=== PATIENT | male | born 1975 | race Caucasian/White ===

== ENCOUNTER 2025-09-19 11:13 | Inpatient (IN) | payer MEDICAID ==
[2025-09-19] VITALS (39 sets, daily range): BP systolic 64–154; BP diastolic 48–101; PULSE 59–116; RESP 10–24; TEMP 36.9–37.1964; O2SAT 95–100
[~2025-09-19] VITALS: Ht 167.6 cm; Wt 86.2 kg
[2025-09-19] MEDS ORDERED: MIDAZOLAM HCL 2 MG/2 ML VIAL ONE ×2 (11:18→11:36)
[2025-09-19] MEDS ORDERED: LIDOCAINE HCL 1% 20ML VIAL ONE (11:18)
[2025-09-19] MEDS ORDERED: FENTANYL CITRATE/PF 50MCG/ML 2ML VIAL ONE ×2 (11:18→11:38)
[2025-09-19] MEDS ORDERED: VERAPAMIL HCL 2.5 MG/1 ML 2ML VIAL IV ONE (11:18)
[2025-09-19] MEDS ORDERED: IODIXANOL 320 MG/ML 150ML BOTTLE IV ONE ×2 (11:18→12:13)
[2025-09-19] MEDS ORDERED: EPINEPHRINE 0.1MG/ML (1:10,000) 10ML SYR ONE (11:18)
[2025-09-19] MEDS ORDERED: ATROPINE SULFATE 1MG/10ML SYR ONE (11:19)
[2025-09-19] MEDS ORDERED: HEPARIN 1000 UNITS/ML 10ML ONE (11:19)
[2025-09-19] MEDS ORDERED: EPTIFIBATIDE 2 MG/ML 10ML VIAL IV ONE (11:31)
[2025-09-19] MEDS: HEPARIN 5000 UNITS/ML VIAL IV ONE (11:35)
[2025-09-19 11:38] LABS: BASOPHILS % 0.9 % (0.0-2.0); EOSINOPHILS % 0.4 % (0.0-5.0); HEMATOCRIT. 47.3 % (42.0-52.0); HEMOGLOBIN. 16.0 g/dL (14.0-18.0); LYMPHOCYTES % 32.3 % (20.0-50.0); MEAN PLATELET VOLUME 7.9 fl (7.4-10.4); MONOCYTES % 11.3 % (2.0-8.0); NEUTROPHILS % 55.1 % (40.0-76.0); PLATELET 319 x1000/uL (130-400); RED BLOOD CELL COUNT 5.48 mill/uL (4.7-6.1); RED CELL DISTRIBUTION WIDTH 13.8 % (11.6-14.6)
[2025-09-19] MEDS ORDERED: TICAGRELOR 90 MG TABLET PO ONE (11:49)
[2025-09-19 11:50] LABS: CREATININE 1.0 mg/dL (0.6-1.3)
[2025-09-19 11:51] LABS: PROTEIN TOTAL 8.1 g/dL (6.0-8.3); UREA NITROGEN BLOOD 10 mg/dL (9-23)
[2025-09-19] MEDS ORDERED: EPTIFIBATIDE 100 ML IV ONE (11:51)
[2025-09-19 11:52] LABS: ASPARTATE AMINOTRANSFERASE 31 IU/L (<34)
[2025-09-19 11:53] LABS: BILIRUBIN DIRECT 0.1 mg/dL (<=3.0); BILIRUBIN TOTAL 0.6 mg/dL (0.1-1.0)
[2025-09-19 11:54] LABS: TROPONIN I HIGH SENSITIVITY 295 ng/L (3.0-53)
[2025-09-19] MEDS ORDERED: ONDANSETRON HCL 4MG/2ML INJ ONE (12:16)
[2025-09-19 12:22] LABS: INR 1.0
[2025-09-19] MEDS ORDERED: IODIXANOL 320MG/ML 100 ML BOTTLE IV ONE (12:26)
[2025-09-19] MEDS ORDERED: DOCUSATE SODIUM 100MG CAPSULE PO PRN (14:45)
[2025-09-19] MEDS ORDERED: HYDRALAZINE 20MG/ML VIAL IV PRN (14:45)
[2025-09-19] MEDS ORDERED: GUAIFENESIN 200MG/10ML SUGAR FREE UDC PO PRN (14:45)
[2025-09-19] MEDS ORDERED: CLONIDINE 0.1MG TABLET PO PRN (14:45)
[2025-09-19] MEDS ORDERED: ONDANSETRON HCL 4MG/2ML INJ IV PRN (14:45)
[2025-09-19] MEDS ORDERED: LORAZEPAM 0.5MG TABLET PO PRN (14:45)
[2025-09-19] MEDS ORDERED: IPRATROPIUM/ALBUTEROL 0.5-3(2.5)MG/3ML NEB HHN PRN (14:45)
[2025-09-19] MEDS ORDERED: ACETAMINOPHEN 325MG TABLET PO PRN ×2 (14:45)
[2025-09-19] MEDS: LISINOPRIL 20MG TABLET PO SCH (16:07)
[2025-09-19] MEDS: NITROGLYCERIN 0.4MG TABLET SL SL PRN (16:07)
[2025-09-19] MEDS ORDERED: NALOXONE HCL 0.4MG/ML VIAL IV PRN (16:15)
[2025-09-19] MEDS: ATROPINE SULFATE 1MG/10ML SYR IV NR ×2 (16:35→16:46)
[2025-09-19] MEDS: ONDANSETRON HCL 4MG/2ML INJ IV NR (16:50)
[2025-09-19] MEDS: SODIUM CHLORIDE 0.9% 250 ML IV ONE ×2 (16:50→18:18)
[2025-09-19] MEDS: MORPHINE SULFATE 2 MG/ML INJ (NOT FOR IM USE) IV NR (17:25)
[2025-09-19] MEDS: BLOOD SUGAR DIAGNOSTIC STRIP TEST SCH (17:25)
[2025-09-19] MEDS: INSULIN LISPRO 100 UNITS/ML SUBCUT SCH (18:18)
[2025-09-19] MEDS: FAMOTIDINE 20MG/2ML VIAL IV SCH (19:30)
[2025-09-19] MEDS: ATORVASTATIN CALCIUM 40MG TABLET PO SCH (22:05)
[2025-09-19] MEDS: MORPHINE SULFATE 2 MG/ML INJ (NOT FOR IM USE) IV SCH (22:07)
[2025-09-19] MEDS: MORPHINE SULFATE 2 MG/ML INJ (NOT FOR IM USE) IV PRN (22:08)
[2025-09-19 22:42] LABS: TRIGLYCERIDE 196.0 mg/dL (0-150)
[2025-09-19 22:43] LABS: LDL CHOLESTEROL 189.0 mg/dL (5-100)
[2025-09-19 22:44] LABS: T4 FREE 1.32 ng/dL (0.89-1.76)
[2025-09-19] MEDS: NITROGLYCERIN 50MG PREMIX 250 ML IV PRN (23:55)
[2025-09-20] VITALS (86 sets, daily range): BP systolic 73–174; BP diastolic 56–92; PULSE 65–115; RESP 8–32; TEMP 36.8–37.5; O2SAT 92–98
[2025-09-20] MEDS ORDERED: EPTIFIBATIDE 2 MG/ML 10ML VIAL IV ONE (00:45)
[2025-09-20] MEDS: EPTIFIBATIDE 100 ML IV SCH (02:32)
[2025-09-20 08:30] LABS: BASOPHILS % 0.1 % (0.0-2.0); EOSINOPHILS % 0.0 % (0.0-5.0); HEMATOCRIT. 45.3 % (42.0-52.0); HEMOGLOBIN. 15.3 g/dL (14.0-18.0); LYMPHOCYTES % 13.6 % (20.0-50.0); MEAN PLATELET VOLUME 8.3 fl (7.4-10.4); MONOCYTES % 12.8 % (2.0-8.0); NEUTROPHILS % 73.5 % (40.0-76.0); PLATELET 279 x1000/uL (130-400); RED BLOOD CELL COUNT 5.28 mill/uL (4.7-6.1); RED CELL DISTRIBUTION WIDTH 14.1 % (11.6-14.6)
[2025-09-20 09:05] LABS: CREATININE 0.8 mg/dL (0.6-1.3)
[2025-09-20 09:06] LABS: UREA NITROGEN BLOOD 12 mg/dL (9-23)
[2025-09-20 09:07] LABS: PHOSPHORUS 3.6 mg/dL (2.5-4.9)
[2025-09-20] MEDS: CARVEDILOL 3.125 MG TABLET PO SCH (21:11)
[2025-09-20] MEDS: INSULIN GLARGINE 100 UNITS/ML SUBCUT SCH (21:13)
[2025-09-20] MEDS: CEFTRIAXONE 1GM/50ML 50 ML IV SCH (21:15)
[2025-09-20 22:06] LABS: CLARITY URINE CLEAR (CLEAR); GLUCOSE URINE 1+ (NEGATIVE); KETONES URINE 1+ (NEGATIVE); LEUKOCYTE ESTERASE URINE NEGATIVE (NEGATIVE); NITRITE URINE NEGATIVE (NEGATIVE); OCCULT BLOOD URINE NEGATIVE (NEGATIVE); PH URINE 5.5 (4.5-8.0); PROTEIN URINE NEGATIVE (NEGATIVE); SPECIFIC GRAVITY URINE 1.012 (1.005-1.030); UROBILINOGEN URINE 0.2 E.U./dL (0.2-1.0)
[2025-09-20 22:24] LABS: *AMPHETAMINES SCREEN URINE NEGATIVE (NEGATIVE); *BARBITURATES SCREEN URINE NEGATIVE (NEGATIVE); *BENZODIAZEPINES SCREEN URINE PRESUMPTIVE POSITIVE (NEGATIVE)
[2025-09-20 22:25] LABS: *COCAINE SCREEN URINE NEGATIVE (NEGATIVE); CANNABINOID URINE SCREEN NEGATIVE (NEGATIVE); ECSTASY MDMA SCREEN URINE NEGATIVE (NEGATIVE); METHADONE URINE SCREEN NEGATIVE (NEGATIVE); OPIATES URINE SCREEN PRESUMPTIVE POSITIVE (NEGATIVE); PHENCYCLIDINE URINE SCREEN NEGATIVE (NEGATIVE)
[2025-09-20 23:15] LABS: COLOR URINE STRAW (YELLOW)
[2025-09-20 23:16] LABS: BACTERIA URINE NONE SEEN; RBC URINE NONE SEEN /hpf (0-2); SQUAMOUS EPITHELIAL CELL URINE RARE /lpf (RARE/1+); WBC URINE 0-2 /hpf (0-2)
[2025-09-21] VITALS: BP 96/74; PULSE 96; RESP 19; TEMP 37.3; O2SAT 96
[2025-09-21 04:12] VITALS: BP 115/95; PULSE 100; RESP 28; TEMP 37.2
[2025-09-21 07:41] LABS: BASOPHILS % 0.3 % (0.0-2.0); EOSINOPHILS % 0.3 % (0.0-5.0); HEMATOCRIT. 43.8 % (42.0-52.0); HEMOGLOBIN. 14.6 g/dL (14.0-18.0); LYMPHOCYTES % 21.2 % (20.0-50.0); MEAN PLATELET VOLUME 8.3 fl (7.4-10.4); MONOCYTES % 14.7 % (2.0-8.0); NEUTROPHILS % 63.5 % (40.0-76.0); PLATELET 266 x1000/uL (130-400); RED BLOOD CELL COUNT 5.05 mill/uL (4.7-6.1); RED CELL DISTRIBUTION WIDTH 13.7 % (11.6-14.6)
[2025-09-21 07:50] LABS: CREATININE 0.8 mg/dL (0.6-1.3); UREA NITROGEN BLOOD 8 mg/dL (9-23)
[2025-09-21 08:00] VITALS: BP 103/74; PULSE 93; RESP 19; TEMP 36.9
[2025-09-21] MEDS: ASPIRIN 81MG TABLET PO SCH (09:20)
[2025-09-21] MEDS: TICAGRELOR 90 MG TABLET PO SCH (09:20)
[2025-09-21 12:24] VITALS: BP 104/76; PULSE 93; RESP 24; TEMP 36.8
[2025-09-21 16:00] VITALS: BP 91/63; PULSE 97; RESP 18; TEMP 36.7
[2025-09-21 20:00] VITALS: BP 119/91; PULSE 94; RESP 22; TEMP 36.8
[2025-09-21] MEDS: FAMOTIDINE 20MG/2ML VIAL IV SCH (21:16)
[2025-09-22] VITALS: BP 93/71; PULSE 90; RESP 18; TEMP 37.2
[2025-09-22 04:00] VITALS: BP 87/67; PULSE 88; RESP 20; TEMP 36.9; O2SAT 96
[2025-09-22 08:00] VITALS: BP 94/78; PULSE 92; RESP 18; TEMP 36.8; O2SAT 98
[2025-09-22] MEDS: LOSARTAN 25 MG TABLET PO SCH (09:00)
[2025-09-22 12:00] VITALS: BP 99/76; PULSE 90; RESP 22; TEMP 36.5; O2SAT 98
[2025-09-22] MEDS: MAGNESIUM 4 G PREMIX 100 ML IV SCH (12:32)
[2025-09-22 16:00] VITALS: BP 110/84; PULSE 95; RESP 28; TEMP 36.4; O2SAT 97
[2025-09-22 20:00] VITALS: BP 116/87; PULSE 96; RESP 28; TEMP 37.6; O2SAT 98
[2025-09-22] MEDS: DEXTROSE 50% WATER 50ML SYRINGE IV PRN (23:16)
[2025-09-23] VITALS: BP 97/74; PULSE 92; RESP 20; TEMP 37.2; O2SAT 99
[2025-09-23] MEDS ORDERED: EMPA10TA PO (01:37)
[2025-09-23] MEDS ORDERED: COR3 PO (01:37)
[2025-09-23] MEDS ORDERED: ASPI-1160 PO (01:37)
[2025-09-23] MEDS ORDERED: TICA90TA PO (01:37)
[2025-09-23] MEDS ORDERED: GLIP5TAB22 MT (01:37)
[2025-09-23] MEDS ORDERED: LOSA25TA26 PO (01:37)
[2025-09-23] MEDS ORDERED: METF-416 MT (01:37)
[2025-09-23] MEDS ORDERED: METO-396 MT ×2 (01:43→01:44)
[2025-09-23] MEDS ORDERED: ATOR-2 MT (01:44)
[2025-09-23 04:00] VITALS: BP 91/61; PULSE 83; RESP 25; TEMP 37.1; O2SAT 94
[2025-09-23 08:00] VITALS: BP 111/77; PULSE 94; RESP 24; TEMP 36.5; O2SAT 98
[2025-09-23] MEDS: EMPAGLIFLOZIN 10MG TABLET PO SCH (08:45)
[2025-09-23] MEDS: METOPROLOL SUCCINATE 25MG ER TABLET PO SCH (09:00)
[2025-09-23 12:00] VITALS: BP 104/78; PULSE 90; RESP 20; TEMP 36.6; O2SAT 99
[2025-09-23 13:45] VITALS: BP 104/78; PULSE 90; RESP 21; TEMP 97.8
[2025-09-23] MEDS ORDERED: INSULIN GLARGINE 100 UNITS/ML SUBCUT SCH (22:00)
== END 2025-09-23 14:11 | disposition home or self-care (01) | DRG 175 ==
LOC: ER 11:13 → CVICU 11:30 → 3WST 09-20 23:15
PROVIDERS: ADMIT Internal Medicine; ATTEND Internal Medicine
PROC: 027034Z Dilation of Coronary Artery, One Artery with Drug-eluting Intraluminal Device, Percutaneous Approach (ICD-10-PCS; principal; 2025-09-19)
PROC: 02703ZZ Dilation of Coronary Artery, One Artery, Percutaneous Approach (ICD-10-PCS; 2025-09-19)
PROC: 3E073PZ Introduction of Platelet Inhibitor into Coronary Artery, Percutaneous Approach (ICD-10-PCS; 2025-09-19)
PROC: B240ZZ3 Ultrasonography of Single Coronary Artery, Intravascular (ICD-10-PCS; 2025-09-19)
PROC: B211YZZ Fluoroscopy of Multiple Coronary Arteries using Other Contrast (ICD-10-PCS; 2025-09-19)
DX: T82.867A Thrombosis due to cardiac prosthetic devices, implants and grafts, initial encounter (principal); A41.9 Sepsis, unspecified organism; I21.19 ST elevation (STEMI) myocardial infarction involving other coronary artery of inferior wall; I11.0 Hypertensive heart disease with heart failure; I50.20 Unspecified systolic (congestive) heart failure; E11.65 Type 2 diabetes mellitus with hyperglycemia; E78.5 Hyperlipidemia, unspecified; I25.10 Atherosclerotic heart disease of native coronary artery without angina pectoris; Y83.1 Surgical operation with implant of artificial internal device as the cause of abnormal reaction of the patient, or of later complication, without mention of misadventure at the time of the procedure; I25.5 Ischemic cardiomyopathy; I25.2 Old myocardial infarction; Z79.4 Long term (current) use of insulin; Z79.899 Other long term (current) drug therapy; Y92.89 Other specified places as the place of occurrence of the external cause
CPT/HCPCS: 36415; 71045; 80048; 80061; 80076; 80305; 81003; 82962; 83036; 83605; 83735; 83880; 84100; 84145; 84439; 84443; 84484; 85014; 85018; 85025; 85347; 86850; 86900; 92941; 92978; 93005; 93306; 93454; 93970; 99291; A4606; C1725; C1753; C1769; C1874; C1887; C1893; J0461; J0696; J1308; J1327; J1644; J1815; J2003; J2250; J2270; J2405; J3010; J3475; J3490; Q9967; J8499